=== PATIENT | male | born 1960 | race Caucasian/White ===

== ENCOUNTER 2018-07-31 12:28 | Emergency (ER) | payer OTHER ==
[~2018-07-31] VITALS: Ht 165.1 cm; Wt 74.8 kg
[2018-07-31] MEDS ORDERED: COZAAR100 MG (14:00)
== END 2018-07-31 17:03 | disposition home or self-care (01) ==
LOC: ER 12:28
DX: S51.021A Laceration with foreign body of right elbow, initial encounter (principal); W45.8XXA Other foreign body or object entering through skin, initial encounter; Y93.89 Activity, other specified; Y92.59 Other trade areas as the place of occurrence of the external cause; Y99.8 Other external cause status